=== PATIENT | male | born 1960 | race Caucasian/White ===

== ENCOUNTER → 2020-03-06 09:32 | Outpatient (CLI) | payer OTHER, SELFPAY ==
--- NOTE | 2020-03-06 | DI.MRI.S_ITS ---
PROCEDURE: MR BRAIN (IAC) WWO CON INDICATIONS: Sensorineural hearing loss, bilateral, tinnitus TECHNIQUE: Noncontrast sagittal T1 spin echo, axial FLAIR, axial gradient echo, axial diffusion and ADC through the brain. Axial thin-slice 3D CISS, coronal TruFISP, axial T1 spin echo with fat saturation through the internal auditory canals. After the administration of contrast, thin slice axial and coronal T1 spin echo with fat saturation through the internal auditory canals, and axial T1 spin echo with fat saturation through the brain. COMPARISON: None. FINDINGS: Image quality: Excellent. Cerebellopontine angles: No cerebellopontine angle masses. Inner ear structures appear normally formed. No suspicious enhancement in the internal auditory canal or along the course of the 7th cranial nerve. CSF spaces: Ventricles are normal in size and shape. No extra-axial fluid collections. Basal cisterns are patent. Brain: No intracranial bleeds or mass effects. Lui-white matter interface is intact. No abnormal intracranial enhancement. Diffusion weighted images demonstrate no acute ischemic insults. Brainstem appears normal. Normal intravascular flow voids are present. Skull and face: Calvarial marrow signal is normal. Orbits appear normal. Sinuses: Sinuses and mastoids are clear. IMPRESSION: No significant abnormality is seen. Specifically, no masses or abnormal enhancement are seen within the cerebellopontine angle cisterns or within the internal auditory canals. Dictated by: Rupesh Bhakta M.D. on 03/06/2020 at 10:14 Approved by: Rupesh Bhakta M.D. on 03/06/2020 at 10:15
== END ==
PROVIDERS: Family Provider Family Medicine; PCP Family Medicine; Referring Provider Otolaryngology; Visit Provider Otolaryngology
DX: H90.A32 Mixed conductive and sensorineural hearing loss, unilateral, left ear with restricted hearing on the contralateral side (principal); H90.3 Sensorineural hearing loss, bilateral; H93.13 Tinnitus, bilateral
CPT/HCPCS: 70553

== ENCOUNTER → 2024-03-20 09:10 | Outpatient (CLI) | payer MEDICARE, SELFPAY ==
--- NOTE | 2024-03-20 09:12 | DI.MRI.S_ITS ---
PROCEDURE: MR LUMBAR SPINE WO CON INDICATIONS: RADICULOPATHY LUMBAR REGION TECHNIQUE: Noncontrast sagittal T1 spin echo and T2 fast echo, sagittal STIR, and T2 fast spin echo through the lumbar spine. In cases with scoliosis, additional coronal T2 fast spin echo may be performed. COMPARISON: [facility], MR, MR LUMBAR SPINE WITHOUT CONTRAST, 07/02/2020, 14:52. FINDINGS: Image quality: Excellent. Alignment and Curvature: There is normal bony alignment. Bone Marrow: Marrow is of normal overall signal. No acute vertebral body compression fractures. Spinal Cord: Conus medullaris terminates at the L1-L2 level. Visualized cord demonstrates normal signal and size. Paraspinous Soft Tissues: No paravertebral masses. T12-L1: Disc bulge. No canal stenosis or foraminal stenosis. L1-L2: Minimal disc bulge. Facet hypertrophy. No canal stenosis or foraminal stenosis. L2-L3: Mild facet hypertrophy. No canal stenosis or foraminal stenosis. L3-L4: Interval increase in disc bulge. Facet and ligament hypertrophy. Borderline canal stenosis. No foraminal stenosis. L4-L5: Previous mild disc bulge. Superimposed development of mild relatively broad-based central posterior disc protrusion. Development of mild canal stenosis. Reference previous axial image 32 of series 7 and current axial image 27 of series 5. Bilateral facet hypertrophy. No significant foraminal narrowing. L5-S1: Marked improvement. Previous diffuse disc bulge with superimposed broad-based posterior disc extrusions spanning the full with of the spinal canal. Previously, there was a degree of impingement on the bilateral S1 nerve roots in the lateral recesses. The disc extrusion is largely resolved. There is annulus tear plus diffuse disc bulge. There is no S1 nerve root impingement currently. Reference previous axial image 38 of series 7 and current axial image 32 of series 5. A small focal far right lateral disc protrusion has developed, mildly impinging on the exiting right L5 nerve root far laterally. Reference sagittal image 3 of series 3. There is also moderate left foraminal narrowing with a degree of left foraminal L5 nerve root impingement. Bilateral foraminal narrowing has increased since the previous study. IMPRESSION: 1. Significant interval improvement at L5-S1, in that a broad-based diffuse disc extrusion has resolved with resolution of impingement on the S1 nerve roots in the lateral recesses. However, there has been progression of bilateral foraminal narrowing. On the right, it is secondary to a small new disc protrusion. There is a degree of bilateral foraminal nerve root impingement at this level. 2. Interval progression at L3-L4 and L4-L5. At L3-L4, borderline canal stenosis has developed. At L4-L5, a disc protrusion has developed resulting in mild canal stenosis. 3. Multilevel underlying facet arthropathy. Dictated by: Josh Gibson M.D. on 03/20/2024 at 13:41 Approved by: Josh Gibson M.D. on 03/20/2024 at 13:51
== END ==
LOC: MRI 09:11
PROVIDERS: Family Provider Family Medicine; PCP Family Medicine; Referring Provider Physical Medicine & Rehabilitation Pain Medicine; Visit Provider Physical Medicine & Rehabilitation Pain Medicine
DX: M51.16 Intervertebral disc disorders with radiculopathy, lumbar region (principal); M48.061 Spinal stenosis, lumbar region without neurogenic claudication; M47.26 Other spondylosis with radiculopathy, lumbar region; M51.17 Intervertebral disc disorders with radiculopathy, lumbosacral region; M48.07 Spinal stenosis, lumbosacral region
CPT/HCPCS: 72148